=== PATIENT | female | born 1965 | race Caucasian/White ===

== ENCOUNTER 2017-10-01 05:37 | Inpatient (IN) | payer OTHER ==
[~2017-10-01] VITALS: Ht 177.8 cm; Wt 97.5 kg
--- NOTE | ~2017-10-01 | O ---
[facility] [place] [address] OPERATIVE REPORT Name: MICAELA BORGES V Room #: 456-P [facility] IN M.R.#: [id number] Admission: 10/01/17 Attend Phys: Parker Chen MD Discharge: Date of : 69 Report #: [id number] THIS REPORT FOR: //name// CC: Parker Chen [facility] physician/PCP PREOPERATIVE DIAGNOSIS: Multilevel degenerative lumbar spondylosis with spinal stenosis at L3-L4 and L4-L5 levels. POSTOPERATIVE DIAGNOSIS: Multilevel degenerative lumbar spondylosis with spinal stenosis at L3-L4 and L4-L5 levels. PROCEDURE: Multilevel laminectomy for decompression for spinal stenosis L3, L4 and L5 levels. SURGEON: Parker Chen M.D. INDICATIONS: This 52-year-old female complains of rather severe progressive bilateral leg pain, numbness and weakness, worse on the right than the left. Her clinical exam and imaging studies show rather significant multilevel degenerative change with disk space narrowing and endplate spurring. There is also significant facet hypertrophy at multiple levels and mild grade 1 spondylolisthesis. This is most severe at L3-L4 where the canal is markedly narrowed. There is similar, but less severe narrowing at L4-L5 level. The canal was more open above and below these areas. We have discussed treatment options including surgical decompression or decompression and fusion. She understands well and prefers to avoid any sort of an instrumented fusion. She is anxious to go ahead with decompressive laminectomy, hoping that this will result in some symptomatic improvement regarding her spinal stenosis and bilateral radiculopathy. She understands the potential risks as well as benefits well. DESCRIPTION OF PROCEDURE: The patient was taken to the operating room where she was placed under general anesthesia. Prophylactic intravenous antibiotics were administered. She was placed in the prone position. The low back was meticulously prepped and draped. C-arm was used to visualize the appropriate levels. A skin incision was made from L2 down to S1. This was carried through abundant adipose tissue and the fascia and muscles were spread laterally to expose the spinous process and lamina. Once adequate exposure was established, the canal was entered at the lower aspect of L5 where there was more room and less risk proceeding proximally. The laminectomy was performed at L5, L4 and L3. The canal was moderately tight at the L4-L5 level and significant improvement occurred with the laminectomy. There was moderate hypertrophy of the ligamentum and the facets with a small facet cyst, which also contributed to canal compromise. The canal was much more severely compromised at the L3-L4 level. Here, the [address] [address] OPERATIVE REPORT Name: MICAELA BORGES V Room #: 456-P [facility] IN .R.#: [id number] Admission: 10/01/17 Attend Phys: Parker Chen MD Discharge: Date of : 69 Report #: [id number] canal was nearly obliterated and there was marked hypertrophy and spurring at the facet joints and an area of calcified cystic degeneration along the right lamina and facet region. These areas were carefully debrided slowly and cautiously to protect the dura and nerve roots. Once the decompression had been completed and extended up through the lamina of L3, there was marked improvement in the canal and the dura appeared to be intact and stable. The dissection was then extended out laterally undercutting the facet joints at each level to improve lateral foramina space. The canal was palpated and the disks were found to be prominent, but without disk herniation and there was no need for further violation of the disk at either level. The neural foramina seemed to be opened adequately, extending both toward the right and the left side. C-arm was used to confirm that I was at the appropriate levels extending from the lower aspect of L2 lamina to the upper aspect of S1 lamina. At this point, the entire wound was further copiously irrigated. Good hemostasis was confirmed. A single Hemovac was left deep in the wound exiting through a separate stab incision. The fascia was then closed with multiple #1 Vicryl sutures and reinforced with 0 Monocryl. The adipose tissues and subcutaneous tissues were also closed with 0 Monocryl. The skin was closed with skin ghazal. A sterile dressing was applied. The patient was then awakened and returned to the recovery room in good condition. <ELECTRONICALLY SIGNED> By: Parker Chen MD 10/02/17 [id number] Parker Chen MD /nt
[~2017-10-01 05:37] MED LIST: TYLENOL325 MG PO
[2017-10-01 07:25] VITALS: BP 149/95
[2017-10-01 12:05] VITALS: BP 108/60
[2017-10-01 15:35] VITALS: BP 114/62
[2017-10-01 19:58] VITALS: BP 127/75
[2017-10-02 04:52] VITALS: BP 120/83
[2017-10-02 07:14] VITALS: BP 113/71
[2017-10-02 08:09] VITALS: BP 113/71
== END 2017-10-02 10:19 | disposition home or self-care (01) | DRG 517 ==
LOC: OR 05:37 → TBA 05:37 → OR 10:44 → 4W 12:09 → OR 12:39 → ENTRNSPT 10-02 10:14 → EDTRNSPTSTS 10-02 10:16 → 4W 10-02 10:19
PROC: 01NB0ZZ Release Lumbar Nerve, Open Approach (ICD-10-PCS; principal; 2017-10-01)
DX: M51.37 Other intervertebral disc degeneration, lumbosacral region (principal); M47.897 Other spondylosis, lumbosacral region; M48.07 Spinal stenosis, lumbosacral region; M43.17 Spondylolisthesis, lumbosacral region
CPT/HCPCS: 10047; 50010; 50101; 50402; 50704; 50850; 51412; 56525; 62110; 62900; 70005